=== PATIENT | female | born 1965 | race Hispanic/Latino ===

== ENCOUNTER → 2023-06-02 | Outpatient (CLI) | payer BC | END | disposition home or self-care (01) | LOC: RAH 09:01 | PROVIDERS: ATTEND Family Medicine | DX: Z12.31 Encounter for screening mammogram for malignant neoplasm of breast (principal) | CPT/HCPCS: 77067 ==

== ENCOUNTER → 2024-06-04 | Outpatient (CLI) | payer BC ==
--- NOTE | 2024-06-07 10:45 | HMCIMG ---
MAMMO SCREENING BILATERAL HISTORY: Screening mammogram. COMPARISON: 06/04/2024 TECHNIQUE: Bilateral screening mammogram with CAD was performed with craniocaudal and mediolateral oblique projections. FINDINGS: There are scattered areas of fibroglandular density. There is no evidence of a dominant mass, or suspicious microcalcification. There is no evidence of nipple retraction or skin thickening. IMPRESSION: 1. Stable mammogram. Patient was entered into a reminder system with a target due date for their next mammogram. BI-RADS: CATEGORY 2: BENIGN FINDINGS Recommend monthly self breast exam as well as annual clinical examination. A negative x-ray should not delay biopsy if a dominant or clinically suspicious mass is present, since 8-10% of cancers are not identified by mammography. Dense breasts particularly, may obscure an underlying neoplasm. Some of these may be detected clinically and therefore, clinical examination is an essential part of breast evaluation.
== END | disposition home or self-care (01) ==
LOC: RAH 13:01
PROVIDERS: ATTEND Family Medicine
DX: Z12.31 Encounter for screening mammogram for malignant neoplasm of breast (principal); R92.323 Mammographic fibroglandular density, bilateral breasts
CPT/HCPCS: 77067